=== PATIENT | male | born 1960 | race Two or more races ===

== ENCOUNTER 2018-08-14 22:51 | Emergency (ER) | payer MEDICAID ==
[~2018-08-14] VITALS: Ht 170.2 cm; Wt 72.6 kg
[~2018-08-14 22:51] MED LIST: ACETAMINOPHEN120 MG PO; BACTRIM DS TAB1 EAC1 ORAL; DOCUSATE SODIU100 M2 ORAL; DULCOLAX10 MG RC; FOLIC ACID PO; INFUVITE ADULT10 ML PO; MIRALAX17 G2 ORAL; SENOKOT8.6 MG PO; THIAMINE HCL25 GM MC; TYLENOL325 MG ORAL; ZYPREXA10 MG ORAL
[2018-08-14] MEDS ORDERED: ZOFRAN4 M3 ORAL (22:58)
[2018-08-14 23:00] VITALS: BP 126/72
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
[2018-08-14] MEDS ORDERED: Tetanus/Diptheria/Pertussis Vaccine 0.5ml Syr IM ONE (23:15)
--- NOTE | 2018-08-15 00:25 | NUR ---
ED Nurse Note: made contact with RAS Matias at [facility], informed shoshana that the patient will be going back, Ambulance ETA is [id number]
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
--- NOTE | 2018-08-15 00:50 | NUR ---
ED Nurse Note: patient is being discharged from ED after being cleared by ERMD, patient is alert and oriented x4, ambulatory with a steady gait, VSS. patient acknowledges the need to follow up with PMd or a clinic within 3-5 days, patient was advised to return if symptoms worsen, patient's prescriptions in hand, ID band removed
[2018-08-15 00:52] VITALS: BP 132/75
[2018-08-17] MEDS ORDERED: DOCUSATE SODIU100 M2 ORAL (19:59)
== END 2018-08-15 00:50 ==
LOC: EDBD 22:51 → EMR 23:09
DX: S09.90XA Unspecified injury of head, initial encounter (principal); S01.01XA Laceration without foreign body of scalp, initial encounter; Y04.2XXA Assault by strike against or bumped into by another person, initial encounter; I25.2 Old myocardial infarction; I10 Essential (primary) hypertension; Z23 Encounter for immunization
CPT/HCPCS: 12004; 70450; 90471; 90715; 99284; Z7502